=== PATIENT | male | born 1955 | race Caucasian/White ===

== ENCOUNTER 2017-09-28 08:26 | Inpatient (IN) | payer OTHER ==
[~2017-09-28] VITALS: Ht 162.6 cm; Wt 72.0 kg
[2017-09-28] VITALS (10 sets, daily range): BP systolic 102–133; BP diastolic 62–80; PULSE 78–96; RESP 14–20; TEMP 98.6; O2SAT 90–98
[~2017-09-28 08:26] MED LIST: ALBU8I INH; CARV3.125 PO; DUONI NEB; FURO1TAB93 PO; LISI5 PO; MOBI15TA PO; NEBUMIS6 INH; PRED10 PO; SYMB160A INH; TIOT18I INH
[2017-09-28] MEDS ORDERED: DILT120C50 PO (08:52)
[2017-09-28] MEDS ORDERED: ALBUAER3 INH (08:52)
--- NOTE | 2017-09-28 08:54 | PD ---
HPI Chief Complaint: Respiratory Symptoms Time Seen by Provider: 08:44 Travel History International Travel<30 days: No Contact w/Intl Traveler<30days: No Traveled to known affect area: No History of Present Illness HPI 61yo M with PMH of COPD on 3L NC presents to the ED with c/o sob and cough for 1 week. Said he used his nebulizer and oxygen but still sob. Pt was saturating in the 80s on 3L NC so increased to 5L and saturating in the low 90s while we wait for BIPAP. Pt is wheezing bilaterally and felt warm last night. He went to his PMD at the [facility] 4 weeks ago for COPD exacerbation and felt good after a few days of steroids but now feels worst. Denies any chest pain, n/v, abdominal pain, focal weakness or numbness. PFSH Past Medical History Hx Anticoagulant Therapy: Yes (asa 81) Arthritis: Yes Asthma: No Autoimmune Disease: No Heart Rhythm Problems: No Cancer: No Cardiovascular Problems: Yes High Cholesterol: No Chest Pain: No Congestive Heart Failure: Yes (diagnosed in 2014) COPD: Yes Coronary Artery Disease: No Diabetes: No Diminished Hearing: No Deep Vein Thrombosis: Yes (PE JUL 2012) Endocrine: No Gastrointestinal Disorders: Yes GERD: No Genitourinary: No Hepatitis: Yes (HEP C) Hiatal Hernia: No Immune Disorder: No Inguinal Hernia: Yes Implanted Vascular Access Dvce: No Musculoskeletal: Yes Neurologic: No Psychiatric: No Reproductive: No Respiratory: Yes Pneumonia: Yes Sleep Apnea: No Thyroid Disease: No Ulcer: No Past Surgical History Abdominal Surgery: Yes (inguinal hernia 5 years ago ) AICD: No Arteriovenous Shunt: No Cardiac Surgery: No Ear Surgery: No Endocrine Surgery: No Eye Surgery: No Genitourinary Surgery: No Gynecologic Surgery: No Insulin Pump: No Joint Replacement: No Oral Surgery: No Pacemaker: No Thoracic Surgery: No Tonsillectomy: Yes Other Surgery: Yes (HERNIA REPAIR 2010.A.) Social History Alcohol Use: No Tobacco Use: Yes Substance Use: No Allergies-Medications (Allergen,Severity, Reaction): Coded Allergies: No Known Allergies (Unverified Adverse Reaction, Unknown, 09/28/17) Reported Meds & Prescriptions Reported Meds & Active Scripts Active Reported Proair Hfa 8.5 GM Inh (Albuterol Sulfate) 90 Mcg/Act Aer 2 Puff INH Q4-6H PRN 108 mcg/actuation Diltiazem CD 24 HR 120 Mg Caper 180 Mg PO DAILY Review of Systems Except as stated in HPI: all other systems reviewed are Neg Physical Exam Narrative GENERAL: 61yo M in moderate distress. SKIN: Focused skin assessment warm/dry. HEAD: Atraumatic. Normocephalic. EYES: Pupils equal and round. No scleral icterus. No injection or drainage. ENT: No nasal bleeding or discharge. Mucous membranes pink and moist. NECK: Trachea midline. No JVD. CARDIOVASCULAR: Regular rate and rhythm. No murmur appreciated. RESPIRATORY: +accessory muscle use. Expiratory wheezing bilaterally. Poor air entry. GASTROINTESTINAL: Abdomen soft, non-tender, nondistended. MUSCULOSKELETAL: No obvious deformities. No clubbing. No cyanosis. No lower extremity edema. NEUROLOGICAL: Awake and alert. No obvious cranial nerve deficits. Motor grossly within normal limits. Normal speech. PSYCHIATRIC: Appropriate mood and affect; insight and judgment normal. Data Data Last Documented VS Vital Signs Date Time Temp Pulse Resp B/P (MAP) Pulse Ox O2 Delivery O2 Flow Rate FiO2 09/28/17 08:57 94 40 09/28/17 08:50 96 20 133/63 (86) Nasal Cannula 4.00 09/28/17 08:31 98.6 Orders Orders Complete Blood Count With Diff (09/28/17 08:50) Basic Metabolic Panel (Bmp) (09/28/17 08:50) B-Type Natriuretic Peptide (09/28/17 08:50) Act Partial Throm Time (Ptt) (09/28/17 08:50) Prothrombin Time / Inr (Pt) (09/28/17 08:50) Magnesium (Mg) (09/28/17 08:50) Troponin I (09/28/17 08:50) Influenzae A/B Antigen (09/28/17 08:50) Blood Culture (09/28/17 08:50) Electrocardiogram (09/28/17 08:50) Chest, Single Ap (09/28/17 08:50) Methylprednisolone So Succ Inj (Solumedr (09/28/17 09:00) Albuterol-Ipratropium Neb (Duoneb Neb) (09/28/17 09:00) Resp Bipap / Cpap Non Invas Vt (09/28/17 08:50) Lactic Acid Sepsis Protocol (09/28/17 08:54) Ceftriaxone Inj (Rocephin Inj) (09/28/17 10:00) Azithromycin Inj (Zithromax Inj) (09/28/17 10:00) Arterial Blood Gas (Abg) (09/28/17 ) Admit To Inpatient (09/28/17 ) Vital Signs (Adult) Q4H (09/28/17 10:16) Activity Oob With Assistance (09/28/17 10:16) Intake + Output JANI.QSHIFT (09/28/17 10:16) Diet Heart Healthy (09/28/17 Lunch) Sodium Chloride 0.9% Flush (Ns Flush) (09/28/17 10:30) Sodium Chloride 0.9% Flush (Ns Flush) (09/28/17 21:00) Acetaminophen (Tylenol) (09/28/17 10:30) Ondansetron Inj (Zofran Inj) (09/28/17 10:30) Temazepam (Restoril) (09/28/17 10:30) Basic Metabolic Panel (Bmp) (09/29/17 06:00) Complete Blood Count With Diff (09/29/17 06:00) Resp Oxygen Price C Titrat 1-4 L (09/28/17 ) Pt Request For Service (09/28/17 10:16) Case Management Consult (09/28/17 10:16) Enoxaparin Inj (Lovenox Inj) (09/28/17 10:30) Scd Bilateral/Knee High JANI.BID (09/28/17 10:16) Roby Bilateral/Knee High JANI.QSHIFT (09/28/17 10:16) Naloxone Inj (Narcan Inj) (09/28/17 10:30) Docusate Sodium-Senna (Constance-Colace) (09/28/17 21:00) Magnesium Hydroxide Liq (Milk Of Magnesi (09/28/17 10:30) Sennosides (Senokot) (09/28/17 10:30) Bisacodyl Supp (Dulcolax Supp) (09/28/17 10:30) Lactulose Liq (Lactulose Liq) (09/28/17 10:30) Inpatient Certification (09/28/17 ) Ceftriaxone Inj (Rocephin Inj) (09/28/17 10:30) Azithromycin Inj (Zithromax Inj) (09/28/17 10:30) Sputum Culture And Gram Stain (09/28/17 10:20) Guaifenesin Er (Mucinex Er) (09/28/17 21:00) Labs Laboratory Tests Test 09/28/17 08:44 09/28/17 09:00 White Blood Count 8.6 TH/MM3 Red Blood Count 4.69 MIL/MM3 Hemoglobin 14.9 GM/DL Hematocrit 44.1 % Mean Corpuscular Volume 93.9 FL Mean Corpuscular Hemoglobin 31.7 PG Mean Corpuscular Hemoglobin Concent 33.7 % Red Cell Distribution Width 13.2 % Platelet Count 249 TH/MM3 Mean Platelet Volume 8.8 FL Neutrophils (%) (Auto) 80.2 % Lymphocytes (%) (Auto) 9.1 % Monocytes (%) (Auto) 8.7 % Eosinophils (%) (Auto) 1.6 % Basophils (%) (Auto) 0.4 % Neutrophils # (Auto) 6.9 TH/MM3 Lymphocytes # (Auto) 0.8 TH/MM3 Monocytes # (Auto) 0.7 TH/MM3 Eosinophils # (Auto) 0.1 TH/MM3 Basophils # (Auto) 0.0 TH/MM3 CBC Comment DIFF FINAL Differential Comment Prothrombin Time 12.0 SEC Prothromb Time International Ratio 1.2 RATIO Activated Partial Thromboplast Time 26.2 SEC Blood Urea Nitrogen 10 MG/DL Creatinine 0.88 MG/DL Random Glucose 163 MG/DL Calcium Level 9.2 MG/DL Magnesium Level 1.8 MG/DL Sodium Level 135 MEQ/L Potassium Level 3.9 MEQ/L Chloride Level 91 MEQ/L Carbon Dioxide Level 37.6 MEQ/L Anion Gap 6 MEQ/L Estimat Glomerular Filtration Rate 87 ML/MIN Troponin I LESS THAN 0.02 NG/ML B-Type Natriuretic Peptide 35 PG/ML Lactic Acid Level 1.6 mmol/L [facility] Medical Decision Making Medical Screen Exam Complete: Yes Emergency Medical Condition: Yes Interpretation(s) EKG: NSR 63bpm. Normal axis. No ST segment elevation or depression. Q wave aVL. Differential Diagnosis COPD exacerbation vs. pneumonia Narrative Course 61yo M with COPD on 3L NC here with hypoxemia and worsening sob on 3L NC. Pt is wheezing bilaterally and given duonebs and methylprednisolone. Pt placed on BIPAP and is doing much better. Still wheezing but saturating at 94% on FiO2 60% and feeling better. Labs reviewed, no leukocytosis. H/H normal. Troponin negative. BNP normal. Lactic acid normal. Influenza negative. CXR showed right lower lobe infiltrate. Hyperinflation consistent with COPD. Pt has not been hospitalized in last 3 months so given ceftriaxone and azithromycin. Discussed with Dr. Cabrera and accepted to her service. Critical Care Narrative Aggregate critical care time was 45 minutes. Time to perform other separately billable procedures was not included in the critical care time. My time did not include minutes spent treating any other patients simultaneously or on activities that did not directly contribute to the patient's treatment. The services I provided to this patient were to treat and/or prevent clinically significant deterioration that could result in: Respiratory distress and . I provided critical care services requiring my management, as noted below: Chart data review, documentation time, medication orders and management, vital sign assessments/reviewing monitor data, ordering and reviewing lab tests, ordering and interpreting/reviewing x-rays and diagnostic studies, care of the patient and discussion of the patient with the admitting physicians. Diagnosis Primary Impression: Acute respiratory failure with hypoxia Additional Impression: COPD exacerbation Admitting Information Admitting Physician Requests: it Stephie Staton DO Sep 28, 2017 08:54
[2017-09-28] MEDS ORDERED: methylPREDNISolone SOD SUCC 125 MG/2 ML VIAL IV PUSH ONE (09:00)
[2017-09-28] MEDS: RESP: ALBUTEROL 2.5 MG/IPRATROPIUM 0.5 MG NEB (SCH) INH ×2 (09:14→09:16)
[2017-09-28 09:24] LABS: AUTOMATED NEUTROPHIL # 6.9 TH/MM3 (1.8-7.7); BASOPHIL % 0.4 % (0.0-2.0); EOSINOPHIL # 0.1 TH/MM3 (0-0.4); EOSINOPHIL % 1.6 % (0.0-4.0); HEMATOCRIT 44.1 % (39.0-51.0); HEMOGLOBIN 14.9 GM/DL (13.0-17.0); LYMPH % 9.1 % (9.0-44.0); LYMPHOCYTE # 0.8 TH/MM3 (1.0-4.8); MEAN CELL VOLUME 93.9 FL (80.0-100.0); MEAN CORPUSCULAR HEMOGLOBIN 31.7 PG (27.0-34.0); MEAN CORPUSCULAR HGB CONC 33.7 % (32.0-36.0); MEAN PLATELET VOLUME 8.8 FL (7.0-11.0); MONO % 8.7 % (0.0-8.0); MONOCYTE # 0.7 TH/MM3 (0-0.9); NEUT % 80.2 % (16.0-70.0); PLATELET COUNT 249 TH/MM3 (150-450); RED BLOOD COUNT 4.69 MIL/MM3 (4.50-5.90); RED CELL DISTRIBUTION WIDTH 13.2 % (11.6-17.2); WHITE BLOOD COUNT 8.6 TH/MM3 (4.0-11.0)
--- NOTE | 2017-09-28 09:24 | RADRPT ---
EXAM DATE/TIME: 09/28/2017 09:10 [place] COMPARISON: CHEST SINGLE AP, August 11, 2015, 13:51. INDICATIONS : Patient presents with extreme shortness of breath, and history of COPD. MEDICAL HISTORY : Emphysema. Congestive heart failure. Chronic obstructive pulmonary SURGICAL HISTORY : heart transplant as infant ENCOUNTER: Initial ACUITY: 1 day PAIN SCORE: 3/10 LOCATION: Bilateral upper chest FINDINGS: 2 portable frontal views of the chest show a mixed interstitial and intra-alveolar opacity within the medial right lung base. A similar but more pronounced infiltrate seen involving this area on the abbey or study. Left lung is clear. No effusions. Heart is normal in size and shape. Bony structures are un remarkable. CONCLUSION: Right lower lobe infiltrate. Hyperinflation consistent with COPD. Amos Acosta Jr., MD on September 28, 2017 at 9:20 Board Certified Radiologist. This report was verified electronically.
[2017-09-28 09:39] LABS: INTERNATIONAL NORMALIZED RATIO 1.2 RATIO
[2017-09-28 09:44] LABS: BICARBONATE 37.6 MEQ/L (21.0-32.0); BLOOD UREA NITROGEN 10 MG/DL (7-18); CALCIUM 9.2 MG/DL (8.5-10.1); CHLORIDE 91 MEQ/L (98-107); CREATININE 0.88 MG/DL (0.60-1.30); GLOMERULAR FILTRATION RATE 87 ML/MIN (>89); GLUCOSE,RANDOM 163 MG/DL (74-106); MAGNESIUM 1.8 MG/DL (1.5-2.5); SODIUM (NA) 135 MEQ/L (136-145)
[2017-09-28 09:48] LABS: TROPONIN I LESS THAN 0.02 NG/ML (0.02-0.05)
[2017-09-28] MEDS ORDERED: AZITHROMYCIN INJ 500 MG in SODIUM CHLOR 0.9% 250 ML INJ 250 ML IV ONE (10:00)
[2017-09-28] MEDS ORDERED: cefTRIAXone INJ 1,000 MG in SODIUM CHLORIDE 0.9% INJ 100 ML IV ONE (10:00)
[2017-09-28] MEDS ORDERED: MAGNESIUM HYDROXIDE SUSP 30 ML CUP PO PRN (10:30)
[2017-09-28] MEDS ORDERED: SENNOSIDES 8.6 MG TAB PO PRN (10:30)
[2017-09-28] MEDS ORDERED: SODIUM CHLORIDE 0.9% FLUSH 10 ML FLUSH IV FLUSH PRN (10:30)
[2017-09-28] MEDS ORDERED: BISACODYL 10 MG SUPP RECTAL PRN (10:30)
[2017-09-28] MEDS ORDERED: LACTULOSE SYRUP 20 GM/30 ML CUP PO PRN (10:30)
[2017-09-28] MEDS ORDERED: ONDANSETRON HCL 4 MG/2 ML VIAL IVP PRN (10:30)
[2017-09-28] MEDS ORDERED: RESP: ALBUTEROL 2.5 MG/IPRATROPIUM 0.5 MG NEB (PRN) NEB (10:30)
[2017-09-28] MEDS ORDERED: NALOXONE HCL 0.4 MG/ML AMP IV PUSH PRN (10:30)
[2017-09-28] MEDS ORDERED: ACETAMINOPHEN 325 MG TAB PO PRN (10:30)
[2017-09-28] MEDS ORDERED: TEMAZEPAM 15 MG CAP PO PRN (10:30)
[2017-09-28] MEDS: RESP: ALBUTEROL 2.5 MG/IPRATROPIUM 0.5 MG NEB (SCH) NEB ×3 (12:00→19:24)
[2017-09-28] MEDS: ENOXAPARIN SODIUM 40 MG/0.4 ML SYRINGE SQ SCH (13:05)
--- NOTE | 2017-09-28 14:31 | HHI.HP ---
[facility] Admission Diagnosis Acute hypoxic respiratory failure, COPD exacerbation, pneumonia Diagnoses: Chief Complaint: sob Travel History International Travel<30 Days: No Contact w/Intl Traveler <30 Da: No Traveled to Known Affected Are: No History of Present Illness 61yo M with PMH of chromic respiratory failure , COPD on 2L NC, congestive heart failure, hep C, arthritis, presents to the ED with c/o sob and cough for 1 week. Said he used his nebulizer and oxygen but still sob. Pt was saturating in the 80s on 3L NC so increased to 5L and saturating in the low 90s while we wait for BIPAP. Pt is wheezing bilaterally and felt warm last night. He went to his PMD at the [facility] 4 weeks ago for COPD exacerbation and felt good after a few days of steroids but now feels worst. Denies any chest pain, n/v, abdominal pain, focal weakness or numbness. Patient was placed on BiPAP in the emergency room as he was desaturating 80s on admission. ABG reviewed. Patient is sleepy. However he says he feels better than when he came. Says he is getting hungry and he did not eat today. Does not have much appetite. He is not coughing at this time. No fever or chills. No nausea or vomiting no diarrhea or constipation. Denies any chest pain. There is no lower extremity edema. Review of Systems ROS Limitations: Clinical Condition Except as stated in HPI: all other systems reviewed are Neg Past Family Social History Past Medical History COPD - on 2 L oxygen during night-time CHF with mod reduced EF Hepatitis C History of PE - in 2011 PUD - seen on EGD in 2013 Diverticulosis - seen on colonoscopy in 2013 Past Surgical History Tonsillectomy and adenoidectomy Right elbow surgery Left knee surgery Hernia repair Right facial/druze surgery Reported Medications Last Impressions Chest X-Ray 09/28/17 0850 Signed Impressions: Service Date/Time: Thursday, September 28, 2017 09:10 - CONCLUSION: Right lower lobe infiltrate. Hyperinflation consistent with COPD. Amos Acosta Jr., MD Allergies: Coded Allergies: No Known Allergies (Unverified Allergy, Unknown, 09/28/17) Family History Father: COPD Mother: CVD Social History Tobacco: 1/2 PPD x 30 years EtOH: 1 6-pack of beer monthly Recreational drugs: denies Physical Exam Vital Signs Vital Signs Date Time Temp Pulse Resp B/P (MAP) Pulse Ox O2 Delivery O2 Flow Rate FiO2 09/28/17 12:46 97 45 09/28/17 10:43 82 18 112/75 (87) 95 BiPAP 50 09/28/17 08:57 94 40 09/28/17 08:50 96 20 133/63 (86) 91 Nasal Cannula 4.00 09/28/17 08:43 107 28 87 Nasal Cannula 7.00 09/28/17 08:31 98.6 83 14 110/62 (78) 90 Physical Exam GENERAL: This is a pleasant 61-year-old male appearing older than the stated age , well-nourished, well-developed patient, in some distress due to shortness of breath now on BiPAP SKIN: No rashes, ecchymoses or lesions. Cool and dry. HEAD: Atraumatic. Normocephalic. No temporal or scalp tenderness. EYES: Pupils equal round and reactive. Extraocular motions intact. No scleral icterus. No injection or drainage. ENT: Nose without bleeding, purulent drainage or septal hematoma. Throat without erythema, tonsillar hypertrophy or exudate. Uvula midline. Airway patent. NECK: Trachea midline. No JVD or lymphadenopathy. Supple, nontender, no meningeal signs. CARDIOVASCULAR: Regular rate and rhythm without murmurs, gallops, or rubs. RESPIRATORY: Decreased breath sounds, scattered wheezing, shortness of breath, on BiPAP currently GASTROINTESTINAL: Abdomen soft, non-tender, nondistended. No hepato-splenomegaly , or palpable masses. No guarding. MUSCULOSKELETAL: Extremities without clubbing, cyanosis, or edema. No joint tenderness, effusion, or edema noted. No calf tenderness. Negative Homans sign bilaterally. NEUROLOGICAL: Awake and alert. Cranial nerves II through XII intact. Motor and sensory grossly within normal limits. Five out of 5 muscle strength in all muscle groups. Normal speech. Laboratory Laboratory Tests Test 09/28/17 08:44 09/28/17 09:00 09/28/17 10:59 White Blood Count 8.6 Red Blood Count 4.69 Hemoglobin 14.9 Hematocrit 44.1 Mean Corpuscular Volume 93.9 Mean Corpuscular Hemoglobin 31.7 Mean Corpuscular Hemoglobin Concent 33.7 Red Cell Distribution Width 13.2 Platelet Count 249 Mean Platelet Volume 8.8 Neutrophils (%) (Auto) 80.2 Lymphocytes (%) (Auto) 9.1 Monocytes (%) (Auto) 8.7 Eosinophils (%) (Auto) 1.6 Basophils (%) (Auto) 0.4 Neutrophils # (Auto) 6.9 Lymphocytes # (Auto) 0.8 Monocytes # (Auto) 0.7 Eosinophils # (Auto) 0.1 Basophils # (Auto) 0.0 CBC Comment DIFF FINAL Differential Comment Prothrombin Time 12.0 Prothromb Time International Ratio 1.2 Activated Partial Thromboplast Time 26.2 Blood Urea Nitrogen 10 Creatinine 0.88 Random Glucose 163 Calcium Level 9.2 Magnesium Level 1.8 Sodium Level 135 Potassium Level 3.9 Chloride Level 91 Carbon Dioxide Level 37.6 Anion Gap 6 Estimat Glomerular Filtration Rate 87 Troponin I LESS THAN 0.02 B-Type Natriuretic Peptide 35 Lactic Acid Level 1.6 Blood Gas Puncture Site LT RADIAL Blood Gas Patient Temperature 98.6 Blood Gas HCO3 35 Blood Gas Base Excess 9.8 Blood Gas Oxygen Saturation 93 Arterial Blood pH 7.41 Arterial Blood Partial Pressure CO2 56 Arterial Blood Partial Pressure O2 76 Arterial Blood Oxygen Content 18.0 Arterial Blood Carboxyhemoglobin 1.7 Arterial Blood Methemoglobin 0.6 Blood Gas Hemoglobin 13.7 Oxygen Delivery Device BIPAP Blood Gas Ventilator Setting 15 IPAP/6 EPAP Blood Gas Inspired Oxygen 50 Date/Time Source Procedure Growth Status 09/28/17 08:55 Blood Peripheral Aerobic Blood Culture Pending Received 09/28/17 08:55 Blood Peripheral Anaerobic Blood Culture Pending Received 09/28/17 09:00 Nasal Aspirate Influenza Types A,B Antigen (MAYA) - Final NEGATIVE FOR FLU A AND B ANTIGEN.... Complete Result Diagram: 09/28/17 0844 09/28/17 0844 Imaging Last Impressions Chest X-Ray 09/28/17 0850 Signed Impressions: Service Date/Time: Thursday, September 28, 2017 09:10 - CONCLUSION: Right lower lobe infiltrate. Hyperinflation consistent with COPD. MD Shelton Elias Jr. VTE Risk Assessment Caprini VTE Risk Assessment: Mod/High Risk (score >= 2) Caprini Risk Assessment Model Point Value = 1 Point Value = 2 Point Value = 3 Point Value = 5 Age 41-60 Minor surgery BMI > 25 kg/m2 Swollen legs Varicose veins or History of unexplained or recurrent spontaneous Oral contraceptives or hormone replacement Sepsis (< 1 month) Serious lung disease, including pneumonia (< 1 month) Abnormal pulmonary function Acute myocardial infarction Congestive heart failure (< 1 month) History of inflammatory bowel disease Medical patient at bed rest Age 61-74 Arthroscopic surgery Major open surgery (> 45 min) Laparoscopic surgery (> 45 min) Malignancy Confined to bed (> 72 hours) Immobilizing plaster cast Central venous access Age >= 75 History of VTE Family history of VTE Factor V Leiden Prothrombin [id number] Lupus anticoagulant Anticardiolipin antibodies Elevated serum homocysteine Heparin-induced thrombocytopenia Other congenital or acquired thrombophilia Stroke (< 1 month) Elective arthroplasty Hip, pelvis, or leg fracture Acute spinal cord injury (< 1 month) Prophylaxis Regimen Total Risk Factor Score Risk Level Prophylaxis Regimen 0-1 Low Early ambulation 2 Moderate Order ONE of the following: *Sequential Compression Device (SCD) *Heparin 5000 units SQ BID 3-4 Higher Order ONE of the following medications: *Heparin 5000 units SQ TID *Enoxaparin/Lovenox 40 mg SQ daily (WT < 150 kg, CrCl > 30 mL/min) *Enoxaparin/Lovenox 30 mg SQ daily (WT < 150 kg, CrCl > 10-29 mL/min) *Enoxaparin/Lovenox 30 mg SQ BID (WT < 150 kg, CrCl > 30 mL/min) AND/OR *Sequential Compression Device (SCD) 5 or more Highest Order ONE of the following medications: *Heparin 5000 units SQ TID (Preferred with Epidurals) *Enoxaparin/Lovenox 40 mg SQ daily (WT < 150 kg, CrCl > 30 mL/min) *Enoxaparin/Lovenox 30 mg SQ daily (WT < 150 kg, CrCl > 10-29 mL/min) *Enoxaparin/Lovenox 30 mg SQ BID (WT < 150 kg, CrCl > 30 mL/min) AND *Sequential Compression Device (SCD) Assessment and Plan Assessment and Plan 61-year-old male with Acute on chronic respiratory failure now requiring BiPAP COPD with exacerbation Right lower lobe pneumonia ABG reviewed. Patient is placed on BiPAP, monitor oxygen saturation taper off oxygen as tolerated. Patient follows with pulmonology doctor at the [facility] Started on IV antibiotics of azithromycin and Rocephin Blood cultures were obtained in the emergency room follow up results Add Mucinex Started DuoNeb scheduled and as needed, taper as tolerated Received 125 mg IV Solu-Medrol in the emergency room. Start Solu-Medrol 40 mg every 6 hours, taper steroids as tolerated Add incentive spirometry Consult PT Chronic medical problems appears at baseline restart home medications as appropriate Discussed Condition With Patient, nurse, ED physician Dr. Staton Physician Certification 2 Midnight Certification Type: Admission for Inpatient Services Order for Inpatient Services The services are ordered in accordance with Medicare regulations or non- Medicare payer requirements, as applicable. In the case of services not specified as inpatient-only, they are appropriately provided as inpatient services in accordance with the 2-midnight benchmark. Estimated LOS (days): 3 days is the estimated time the patient will need to remain in the hospital, assuming treatment plan goals are met and no additional complications. Post-Hospital Plan: Not yet determined Halima Cabrera MD Sep 28, 2017 14:31
[2017-09-28] MEDS: methylPREDNISolone SOD SUCC 40 MG/1 ML VIAL IV PUSH SCH ×2 (15:53→21:20)
[2017-09-28] MEDS: SODIUM CHLORIDE 0.9% FLUSH 10 ML FLUSH IV FLUSH SCH (21:19)
[2017-09-28] MEDS: DOCUSATE SODIUM 50 MG/SENNA 8.6 MG TAB PO SCH (21:20)
[2017-09-28] MEDS: guaiFENesin E.R. 600 MG TAB PO SCH (21:20)
[2017-09-29] VITALS (31 sets, daily range): BP systolic 96–123; BP diastolic 53–77; PULSE 61–137; RESP 16–20; TEMP 97.4–98.6; O2SAT 92–96
[2017-09-29] MEDS ORDERED: DILTIAZEM HCL 30 MG TAB PO ONE (00:45)
[2017-09-29] MEDS: DILTIAZEM-CD 180 MG CAP ER PO SCH ×2 (03:12→09:04)
[2017-09-29] MEDS: methylPREDNISolone SOD SUCC 40 MG/1 ML VIAL IV PUSH SCH ×3 (03:13→19:03)
[2017-09-29 05:08] LABS: AUTOMATED NEUTROPHIL # 9.1 TH/MM3 (1.8-7.7); BASOPHIL % 0.1 % (0.0-2.0); HEMATOCRIT 38.6 % (39.0-51.0); HEMOGLOBIN 13.3 GM/DL (13.0-17.0); LYMPH % 4.4 % (9.0-44.0); LYMPHOCYTE # 0.4 TH/MM3 (1.0-4.8); MEAN CELL VOLUME 93.3 FL (80.0-100.0); MEAN CORPUSCULAR HEMOGLOBIN 32.1 PG (27.0-34.0); MEAN CORPUSCULAR HGB CONC 34.4 % (32.0-36.0); MONO % 3.9 % (0.0-8.0); MONOCYTE # 0.4 TH/MM3 (0-0.9); NEUT % 91.6 % (16.0-70.0); PLATELET COUNT 240 TH/MM3 (150-450); RED BLOOD COUNT 4.14 MIL/MM3 (4.50-5.90); RED CELL DISTRIBUTION WIDTH 13.1 % (11.6-17.2)
[2017-09-29 05:24] LABS: BICARBONATE 36.2 MEQ/L (21.0-32.0); CALCIUM 9.5 MG/DL (8.5-10.1); CREATININE 0.81 MG/DL (0.60-1.30)
--- NOTE | 2017-09-29 07:27 | HHI.PR ---
Subjective Remarks Patient is in bed he appears to not acute distress at this time. He is off BiPAP. Says BiPAP did help a lot with breathing. Not coughing much. He is saturating well on 3 L by nasal cannula. No fever or chills. Objective Vitals Vital Signs Date Time Temp Pulse Resp B/P (MAP) Pulse Ox O2 Delivery O2 Flow Rate FiO2 09/29/17 06:00 61 09/29/17 05:00 63 09/29/17 04:00 74 09/29/17 03:20 97.4 80 18 103/70 (81) 95 09/29/17 03:20 95 Nasal Cannula 3.00 09/29/17 03:00 81 09/29/17 02:00 79 09/29/17 01:00 80 09/29/17 00:20 Nasal Cannula 3.00 09/29/17 00:15 96 Nasal Cannula 4.00 09/29/17 00:15 92 09/29/17 00:15 98.0 87 20 123/77 (92) 96 09/29/17 00:13 94 Nasal Cannula 3.00 09/29/17 00:02 09/28/17 23:00 78 16 121/71 (88) 98 Nasal Cannula 4.00 09/28/17 21:00 80 16 115/66 (82) 98 Nasal Cannula 4.00 09/28/17 19:28 96 4.00 09/28/17 19:06 82 15 102/71 (81) 97 Nasal Cannula 4.00 09/28/17 16:12 87 14 109/80 (90) 97 Nasal Cannula 4.00 09/28/17 12:46 97 45 09/28/17 10:43 82 18 112/75 (87) 95 BiPAP 50 09/28/17 08:57 94 40 09/28/17 08:50 96 20 133/63 (86) 91 Nasal Cannula 4.00 09/28/17 08:43 107 28 87 Nasal Cannula 7.00 09/28/17 08:31 98.6 83 14 110/62 (78) 90 I/O 09/28/17 09/28/17 09/28/17 09/29/17 09/29/17 09/29/17 07:00 15:00 23:00 07:00 15:00 23:00 Intake Total 350 ml 240 ml 480 ml Output Total 375 ml Balance 350 ml 240 ml 105 ml Intake Oral 240 ml 480 ml IV Total 350 ml Output Urine Total 375 ml # Bowel Movements 0 Result Diagram: 09/29/17 0400 09/29/17 0400 Imaging Last Impressions Chest X-Ray 09/28/17 0850 Signed Impressions: Service Date/Time: Thursday, September 28, 2017 09:10 - CONCLUSION: Right lower lobe infiltrate. Hyperinflation consistent with COPD. Amos Acosta Jr., MD Objective Remarks GENERAL: This is a pleasant 61-year-old male appearing older than the stated age , well-nourished, well-developed patient,appears in nad CARDIOVASCULAR: Regular rate and rhythm without murmurs, gallops, or rubs. RESPIRATORY: Decreased breath sounds, scattered wheezing, shortness of breath. GASTROINTESTINAL: Abdomen soft, non-tender, nondistended. No hepato-splenomegaly , or palpable masses. No guarding. MUSCULOSKELETAL: Extremities without clubbing, cyanosis, or edema. No joint tenderness, effusion, or edema noted. No calf tenderness. Negative Homans sign bilaterally. NEUROLOGICAL: Awake and alert. Cranial nerves II through XII intact. Motor and sensory grossly within normal limits. Five out of 5 muscle strength in all muscle groups. Normal speech. A/P Assessment and Plan 61-year-old male with Acute on chronic respiratory failure now requiring BiPAP COPD with exacerbation Right lower lobe pneumonia ABG reviewed. Patient is placed on BiPAP, monitor oxygen saturation taper off oxygen as tolerated. Patient follows with pulmonology doctor at the [place] Started on IV antibiotics of azithromycin and Rocephin Blood cultures were obtained in the emergency room follow up results Add Mucinex Started DuoNeb scheduled and as needed, taper as tolerated Received 125 mg IV Solu-Medrol in the emergency room. Start Solu-Medrol 40 mg every 6 hours, taper steroids as tolerated Add incentive spirometry, Acapella Consult PT Chronic medical problems appears at baseline restart home medications as appropriate Discussed Condition With Patient, nurse Halima Cabrera MD Sep 29, 2017 07:27
[2017-09-29] MEDS: RESP: ALBUTEROL 2.5 MG/IPRATROPIUM 0.5 MG NEB (SCH) NEB ×4 (08:35→19:29)
[2017-09-29] MEDS: DOCUSATE SODIUM 50 MG/SENNA 8.6 MG TAB PO SCH ×2 (08:57→21:53)
[2017-09-29] MEDS: guaiFENesin E.R. 600 MG TAB PO SCH ×2 (08:58→21:53)
[2017-09-29] MEDS ORDERED: DILTIAZEM-CD 180 MG CAP ER PO SCH (09:00)
[2017-09-29] MEDS: cefTRIAXone INJ 1,000 MG in SODIUM CHLORIDE 0.9% INJ 100 ML IV SCH (09:01)
[2017-09-29] MEDS: SODIUM CHLORIDE 0.9% FLUSH 10 ML FLUSH IV FLUSH SCH ×2 (09:01→21:00)
[2017-09-29] MEDS: AZITHROMYCIN INJ 500 MG in SODIUM CHLOR 0.9% 250 ML INJ 250 ML IV SCH (10:44)
[2017-09-29] MEDS: ENOXAPARIN SODIUM 40 MG/0.4 ML SYRINGE SQ SCH (11:47)
[2017-09-30] VITALS (15 sets, daily range): BP systolic 94–108; BP diastolic 61–75; PULSE 77–127; RESP 16–18; TEMP 96–98.2; O2SAT 91–97
[2017-09-30] MEDS: methylPREDNISolone SOD SUCC 40 MG/1 ML VIAL IV PUSH SCH ×3 (03:15→18:41)
--- NOTE | 2017-09-30 07:26 | HHI.FF ---
Face to Face Verification Diagnosis: (1) COPD (chronic obstructive pulmonary disease) (2) Acute respiratory failure with hypoxia (3) Cor pulmonale (4) Pneumonia Physical Therapy Order: Evaluate and Treat Home Health Nursing Order: Medical education Signs/symptoms of disease process Medication education-adverse effect Nursing assessment with vital signs I have seen patient Alonso Recinos on 09/30/17. My clinical findings support the need for the requested home health care services because: Ltd mobility - disease progression Patient has SOB I certify that my clinical findings support that this patient is homebound because: Hx COPD- exertion dyspnea/weakness Halima Cabrera MD Sep 30, 2017 07:26
--- NOTE | 2017-09-30 07:44 | HHI.PR ---
Subjective Remarks Patient is in bed with some wheezing and coughing yellow sputum no blood in it. No n/v/d/c. Denies cp. With sob. No fever or chills overnight. Objective Vitals Vital Signs Date Time Temp Pulse Resp B/P (MAP) Pulse Ox O2 Delivery O2 Flow Rate FiO2 09/30/17 06:00 100 09/30/17 05:00 94 09/30/17 04:00 82 09/30/17 03:00 96 Nasal Cannula 3.00 09/30/17 03:00 97.8 77 16 106/70 (82) 96 09/30/17 03:00 77 09/30/17 02:00 86 09/30/17 01:00 96 09/30/17 00:00 102 09/29/17 23:00 98.2 93 16 105/68 (80) 94 09/29/17 23:00 93 09/29/17 23:00 94 Nasal Cannula 3.00 09/29/17 22:00 102 09/29/17 21:00 110 09/29/17 20:00 110 09/29/17 19:31 Nasal Cannula 3.00 09/29/17 19:00 98.2 137 16 105/63 (77) 95 09/29/17 19:00 95 Nasal Cannula 3.00 09/29/17 19:00 137 09/29/17 18:00 104 09/29/17 17:00 110 09/29/17 16:00 109 09/29/17 15:00 98.1 95 19 96/53 (67) 94 09/29/17 15:00 102 09/29/17 15:00 94 Nasal Cannula 3.00 09/29/17 14:00 117 09/29/17 13:00 119 09/29/17 12:02 93 09/29/17 12:00 97.8 89 17 99/55 (70) 93 09/29/17 12:00 94 09/29/17 11:00 79 09/29/17 11:00 84 09/29/17 11:00 95 Nasal Cannula 3.00 09/29/17 11:00 98.6 83 17 110/65 (80) 95 09/29/17 10:17 83 09/29/17 10:00 82 09/29/17 09:15 86 09/29/17 09:00 89 09/29/17 08:35 92 Nasal Cannula 3.00 09/29/17 08:04 86 09/29/17 08:00 82 09/29/17 08:00 98.3 76 16 106/68 (81) 94 I/O 09/29/17 09/29/17 09/29/17 09/30/17 09/30/17 09/30/17 07:00 15:00 23:00 07:00 15:00 23:00 Intake Total 480 ml 350 ml 600 ml 480 ml Output Total 375 ml 850 ml Balance 105 ml 350 ml -250 ml 480 ml Intake Oral 480 ml 600 ml 480 ml IV Total 350 ml Output Urine Total 375 ml 850 ml # Voids 3 # Bowel Movements 0 1 Result Diagram: 09/29/17 0400 09/29/17 0400 Imaging Last Impressions Chest X-Ray 09/28/17 0850 Signed Impressions: Service Date/Time: Thursday, September 28, 2017 09:10 - CONCLUSION: Right lower lobe infiltrate. Hyperinflation consistent with COPD. Amos Acosta Jr., MD Objective Remarks GENERAL: This is a pleasant 61-year-old male appearing older than the stated age , well-nourished, well-developed patient,appears in nad CARDIOVASCULAR: Regular rate and rhythm without murmurs, gallops, or rubs. RESPIRATORY: Decreased breath sounds, scattered wheezing, shortness of breath. GASTROINTESTINAL: Abdomen soft, non-tender, nondistended. No hepato-splenomegaly , or palpable masses. No guarding. MUSCULOSKELETAL: Extremities without clubbing, cyanosis, or edema. No joint tenderness, effusion, or edema noted. No calf tenderness. Negative Homans sign bilaterally. NEUROLOGICAL: Awake and alert. Cranial nerves II through XII intact. Motor and sensory grossly within normal limits. Five out of 5 muscle strength in all muscle groups. Normal speech. A/P Assessment and Plan 61-year-old male with Acute on chronic respiratory failure, requiring BiPAP. Patient is on 2-3 L O2 at home.Currently on 3L NC. Resolved COPD with exacerbation. Resolving Right lower lobe pneumonia. r]Resolving ABG reviewed. Patient is placed on BiPAP, monitor oxygen saturation taper off oxygen as tolerated. Patient follows with pulmonology doctor at the [facility] Started on IV antibiotics of azithromycin and Rocephin Blood cultures were obtained in the emergency room follow up results Sputum cultures pending Legionella and Pneumococcal ag pending Add Mucinex Started DuoNeb scheduled and as needed, taper as tolerated Received 125 mg IV Solu-Medrol in the emergency room. Start Solu-Medrol 40 mg every 6 hours, taper steroids as tolerated Add incentive spirometry, A[place] Consult PT Chronic medical problems appears at baseline restart home medications as appropriate Discussed Condition With Patient, nurse Halima Cabrera MD Sep 30, 2017 07:44
[2017-09-30] MEDS: RESP: ALBUTEROL 2.5 MG/IPRATROPIUM 0.5 MG NEB (SCH) NEB ×4 (07:47→19:33)
[2017-09-30] MEDS: DILTIAZEM-CD 180 MG CAP ER PO SCH (08:42)
[2017-09-30] MEDS: guaiFENesin E.R. 600 MG TAB PO SCH ×2 (08:42→20:23)
[2017-09-30] MEDS: DOCUSATE SODIUM 50 MG/SENNA 8.6 MG TAB PO SCH ×2 (08:42→20:23)
[2017-09-30] MEDS: cefTRIAXone INJ 1,000 MG in SODIUM CHLORIDE 0.9% INJ 100 ML IV SCH (08:43)
[2017-09-30] MEDS: SODIUM CHLORIDE 0.9% FLUSH 10 ML FLUSH IV FLUSH SCH ×2 (08:43→20:27)
[2017-09-30] MEDS: SODIUM CHLOR 0.9% 1000 ML INJ 1,000 ML IV SCH ×2 (08:44→19:40)
[2017-09-30] MEDS: AZITHROMYCIN INJ 500 MG in SODIUM CHLOR 0.9% 250 ML INJ 250 ML IV SCH (12:14)
[2017-09-30] MEDS: ENOXAPARIN SODIUM 40 MG/0.4 ML SYRINGE SQ SCH (12:15)
[2017-09-30] MEDS ORDERED: ACETAMINOPHEN 325 MG TAB PO PRN (16:45)
[2017-10-01] VITALS: BP 103/69; PULSE 104; RESP 20; TEMP 97.4; O2SAT 93
[2017-10-01] MEDS: methylPREDNISolone SOD SUCC 40 MG/1 ML VIAL IV PUSH SCH (02:31)
[2017-10-01] MEDS: SODIUM CHLOR 0.9% 1000 ML INJ 1,000 ML IV SCH (02:33)
[2017-10-01 04:00] VITALS: BP 108/77; PULSE 99; RESP 20; TEMP 96; O2SAT 96
[2017-10-01 04:38] LABS: AUTOMATED NEUTROPHIL # 17.8 TH/MM3 (1.8-7.7); BASOPHIL % 0.1 % (0.0-2.0); HEMATOCRIT 38.7 % (39.0-51.0); HEMOGLOBIN 12.8 GM/DL (13.0-17.0); LYMPH % 2.9 % (9.0-44.0); LYMPHOCYTE # 0.6 TH/MM3 (1.0-4.8); MEAN CELL VOLUME 93.9 FL (80.0-100.0); MEAN CORPUSCULAR HEMOGLOBIN 31.2 PG (27.0-34.0); MEAN CORPUSCULAR HGB CONC 33.2 % (32.0-36.0); MEAN PLATELET VOLUME 8.6 FL (7.0-11.0); MONO % 3.7 % (0.0-8.0); MONOCYTE # 0.7 TH/MM3 (0-0.9); NEUT % 93.3 % (16.0-70.0); PLATELET COUNT 345 TH/MM3 (150-450); RED BLOOD COUNT 4.12 MIL/MM3 (4.50-5.90); RED CELL DISTRIBUTION WIDTH 13.4 % (11.6-17.2); WHITE BLOOD COUNT 19.1 TH/MM3 (4.0-11.0)
[2017-10-01 05:03] LABS: BICARBONATE 38.9 MEQ/L (21.0-32.0); CALCIUM 8.7 MG/DL (8.5-10.1); CREATININE 0.76 MG/DL (0.60-1.30)
[2017-10-01] MEDS: RESP: ALBUTEROL 2.5 MG/IPRATROPIUM 0.5 MG NEB (SCH) NEB ×2 (07:56→11:34)
[2017-10-01 07:58] VITALS: O2SAT 94
[2017-10-01 08:00] VITALS: BP 110/75; PULSE 86; RESP 17; TEMP 96; O2SAT 96
[2017-10-01 08:00] LABS: BANDS 4 % (0-6); LYMPHOCYTES 2 % (9-44); MONOCYTES 1 % (0-8); MYELOCYTES 4 % (0-0); NEUTROPHIL # MANUAL DIFF 18.5 TH/MM3 (1.8-7.7); POLYS (SEG NEUTROPHILS) 89 % (16-70)
[2017-10-01] MEDS: SODIUM CHLORIDE 0.9% FLUSH 10 ML FLUSH IV FLUSH SCH (09:00)
[2017-10-01] MEDS: DILTIAZEM-CD 180 MG CAP ER PO SCH (09:08)
[2017-10-01] MEDS: DOCUSATE SODIUM 50 MG/SENNA 8.6 MG TAB PO SCH (09:08)
[2017-10-01] MEDS: cefTRIAXone INJ 1,000 MG in SODIUM CHLORIDE 0.9% INJ 100 ML IV SCH (09:08)
[2017-10-01] MEDS: guaiFENesin E.R. 600 MG TAB PO SCH (09:08)
[2017-10-01] MEDS ORDERED: predniSONE 20 MG TAB PO ONE (10:30)
[2017-10-01] MEDS ORDERED: SYMB160A INH (10:33)
[2017-10-01] MEDS ORDERED: guaiFENesin ER PO (10:33)
[2017-10-01] MEDS ORDERED: IPRA17I INH (10:33)
[2017-10-01] MEDS ORDERED: PRED20 PO (10:33)
[2017-10-01] MEDS ORDERED: SPIRCAP INH (10:33)
[2017-10-01] MEDS ORDERED: VENTAER INH (10:33)
[2017-10-01] MEDS ORDERED: AZIT250T3 PO (10:37)
[2017-10-01] MEDS ORDERED: BUDESONIDE-FORMOTEROL 160/4.5 MCG INHALER INH SCH (10:45)
[2017-10-01] MEDS ORDERED: TIOTROPIUM BROMIDE 18 MCG INH INH SCH (10:45)
--- NOTE | 2017-10-01 10:50 | HHI.PR ---
Subjective Remarks Follow-up COPD exacerbation/respiratory failure/community acquired pneumonia 10/01/17-patient seen and examined, reports significant improvement or shortness of breath denies any chest pain. Currently on 3 L nasal cannula. Objective Vitals Vital Signs Date Time Temp Pulse Resp B/P (MAP) Pulse Ox O2 Delivery O2 Flow Rate FiO2 10/01/17 09:15 Nasal Cannula 3.00 10/01/17 08:00 96.0 86 17 110/75 (87) 96 10/01/17 07:58 94 Nasal Cannula 3.00 10/01/17 04:00 96.0 99 20 108/77 (87) 96 10/01/17 00:00 97.4 104 20 103/69 (80) 93 09/30/17 20:00 96.6 88 18 105/75 (85) 95 09/30/17 19:34 95 Nasal Cannula 3.00 09/30/17 16:00 96.9 86 17 98/65 (76) 96 09/30/17 14:16 Nasal Cannula 3.00 09/30/17 12:00 96.0 102 17 108/61 (77) 91 I/O 09/30/17 09/30/17 09/30/17 10/01/17 10/01/17 10/01/17 07:00 15:00 23:00 07:00 15:00 23:00 Intake Total 480 ml 250 ml 1746 ml 1360 ml Output Total 300 ml 300 ml Balance 480 ml 250 ml 1446 ml 1060 ml Intake Oral 480 ml 1746 ml 360 ml IV Total 250 ml 1000 ml Output Urine Total 300 ml 300 ml # Voids 3 3 2 # Bowel Movements 1 1 0 Result Diagram: 10/01/17 0407 10/01/17 0407 Imaging Last Impressions Chest X-Ray 09/28/17 0850 Signed Impressions: Service Date/Time: Thursday, September 28, 2017 09:10 - CONCLUSION: Right lower lobe infiltrate. Hyperinflation consistent with COPD. Amos Acosta Jr., MD Objective Remarks GENERAL: NAD SKIN: Warm and dry. HEAD: Normocephalic. EYES: No scleral icterus. No injection or drainage. NECK: Supple, trachea midline. No JVD or lymphadenopathy. CARDIOVASCULAR: Regular rate and rhythm without murmurs, gallops, or rubs. RESPIRATORY: Breath sounds equal bilaterally. No accessory muscle use. GASTROINTESTINAL: Abdomen soft, non-tender, nondistended. MUSCULOSKELETAL: No cyanosis, or edema. BACK: Nontender without obvious deformity. No CVA tenderness. Procedures none A/P Problem List: (1) Acute respiratory failure with hypoxia ICD Code: J96.01 - Acute respiratory failure with hypoxia Status: Acute (2) COPD exacerbation ICD Code: J44.1 - Chronic obstructive pulmonary disease with (acute) exacerbation Status: Acute (3) Pneumonia ICD Code: J18.9 - Pneumonia, unspecified organism Status: Acute Assessment and Plan 61-year-old man with COPD exacerbation Acute respiratory failure with hypoxia Community-acquired pneumonia Currently on Solu-Medrol, switch to by mouth prednisone Add Spiriva, Symbicort, continue with Duo Neb schedule and PRN Continue with Antibiotics Maintain oxygen saturation above 92% Paroxysmal atrial fibrillation On Cardizem Patient currently not on any oral anticoagulation DVT prophylaxis: Ciaran Car MD Oct 01, 2017 10:50
--- NOTE | 2017-10-01 10:59 | HHI.DS ---
Discharge Summary Admission Date Sep 28, 2017 at 10:23 Discharge Date: Oct 01, 2017 Admitting Diagnosis Acute hypoxic respiratory failure, COPD exacerbation, pneumonia (1) Acute respiratory failure with hypoxia ICD Code: J96.01 - Acute respiratory failure with hypoxia Status: Acute (2) COPD exacerbation ICD Code: J44.1 - Chronic obstructive pulmonary disease with (acute) exacerbation Status: Acute (3) Pneumonia ICD Code: J18.9 - Pneumonia, unspecified organism Status: Acute Procedures none Brief History - From Admission 61yo M with PMH of chromic respiratory failure , COPD on 2L NC, congestive heart failure, hep C, arthritis, presents to the ED with c/o sob and cough for 1 week. Said he used his nebulizer and oxygen but still sob. Pt was saturating in the 80s on 3L NC so increased to 5L and saturating in the low 90s while we wait for BIPAP. Pt is wheezing bilaterally and felt warm last night. He went to his PMD at the [facility] 4 weeks ago for COPD exacerbation and felt good after a few days of steroids but now feels worst. Denies any chest pain, n/v, abdominal pain, focal weakness or numbness. Patient was placed on BiPAP in the emergency room as he was desaturating 80s on admission. ABG reviewed. Patient is sleepy. However he says he feels better than when he came. Says he is getting hungry and he did not eat today. Does not have much appetite. He is not coughing at this time. No fever or chills. No nausea or vomiting no diarrhea or constipation. Denies any chest pain. There is no lower extremity edema. CBC/BMP: 10/01/17 0407 10/01/17 0407 Significant Findings Laboratory Tests Test 09/28/17 10:59 09/29/17 04:00 10/01/17 04:07 Blood Gas HCO3 35 mmol/L (22-26) Blood Gas Base Excess 9.8 mmol/L (-2-2) Arterial Blood Partial Pressure CO2 56 mmHg (38-42) Red Blood Count 4.14 MIL/MM3 (4.50-5.90) 4.12 MIL/MM3 (4.50-5.90) Hematocrit 38.6 % (39.0-51.0) 38.7 % (39.0-51.0) Neutrophils (%) (Auto) 91.6 % (16.0-70.0) 93.3 % (16.0-70.0) Lymphocytes (%) (Auto) 4.4 % (9.0-44.0) 2.9 % (9.0-44.0) Neutrophils # (Auto) 9.1 TH/MM3 (1.8-7.7) 17.8 TH/MM3 (1.8-7.7) Lymphocytes # (Auto) 0.4 TH/MM3 (1.0-4.8) 0.6 TH/MM3 (1.0-4.8) Random Glucose 146 MG/DL (74-106) 131 MG/DL (74-106) Sodium Level 135 MEQ/L (136-145) Chloride Level 93 MEQ/L (98-107) 96 MEQ/L (98-107) Carbon Dioxide Level 36.2 MEQ/L (21.0-32.0) 38.9 MEQ/L (21.0-32.0) White Blood Count 19.1 TH/MM3 (4.0-11.0) Hemoglobin 12.8 GM/DL (13.0-17.0) Neutrophils % (Manual) 89 % (16-70) Lymphocytes % 2 % (9-44) Neutrophils # (Manual) 18.5 TH/MM3 (1.8-7.7) Myelocytes 4 % (0-0) Anion Gap 3 MEQ/L (5-15) Imaging Last Impressions Chest X-Ray 09/28/17 0850 Signed Impressions: Service Date/Time: Thursday, September 28, 2017 09:10 - CONCLUSION: Right lower lobe infiltrate. Hyperinflation consistent with COPD. Amos Acosta Jr., MD PE at Discharge GENERAL: NAD SKIN: Warm and dry. HEAD: Normocephalic. EYES: No scleral icterus. No injection or drainage. NECK: Supple, trachea midline. No JVD or lymphadenopathy. CARDIOVASCULAR: irreg Regular rate and rhythm without murmurs, gallops, or rubs. RESPIRATORY: Breath sounds equal bilaterally. No accessory muscle use. GASTROINTESTINAL: Abdomen soft, non-tender, nondistended. MUSCULOSKELETAL: No cyanosis, or edema. BACK: Nontender without obvious deformity. No CVA tenderness. Hospital Course Patient was treated with initially IV Solu-Medrol,LABA as well as TROY along with IV antibiotics with improvement of his shortness of breath. His Respiratory failure resolved and returned to baseline on 3L NC. Prior to discharge, he was switched to PO steroid as well as antibiotic. His treatment for his other chronic medical conditions were resumed. DVT prophylaxis was provided Pt Condition on Discharge: Good Discharge Disposition: Discharge Home Discharge Time: <= 30 minutes Discharge Instructions DIET: Follow Instructions for: Heart Healthy Diet Activities you can perform: Regular-No Restrictions Follow up Referrals: PCP Follow-up - 1 Week New Medications: Albuterol 18 GM Inh (Ventolin Hfa 18 GM Inh) 90 Mcg/Act Aer 2 PUFF INH Q4-6H PRN for SHORTNESS OF BREATH, #1 INHALER 0 Refills Azithromycin (Azithromycin) 250 Mg Tab 250 MG PO DAILY for Infection, #5 TAB 0 Refills Budesonide-Formoterol Inh (Symbicort Inh) 160-4.5 Mcg/Act Aero 2 PUFF INH Q12HR, #1 INHALER 0 Refills Ipratropium HFA 12.9 GM Inh (Atrovent HFA 12.9 GM Inh) 17 Mcg/Actuation Aer 2 PUFF INH Q6HR PRN for SHORTNESS OF BREATH, #1 INHALER 0 Refills Tiotropium Inh (Spiriva Handihaler) 18 Mcg Cap 18 MCG INH DAILY for COPD, #30 CAP 0 Refills 1 capsule = 18 mcg Prednisone (Prednisone) 20 Mg Tab 20 MG PO DAILY for Breathing Treatment, #7 TAB [guaiFENesin ER] () 600 MG TABCR 600 MG PO BID, #20 Continued Medications: Albuterol 8.5 GM Inh (Proair Hfa 8.5 GM Inh) 90 Mcg/Act Aer 2 PUFF INH Q4-6H PRN for SHORTNESS OF BREATH, #1 INHALER 0 Refills 108 mcg/actuation Diltiazem CD 24 HR (Diltiazem CD 24 HR) 120 Mg Caper 180 MG PO DAILY, #30 CAP 0 Refills Ciaran Piedra MD Oct 01, 2017 10:59
[2017-10-01] MEDS: AZITHROMYCIN INJ 500 MG in SODIUM CHLOR 0.9% 250 ML INJ 250 ML IV SCH (11:47)
[2017-10-01] MEDS: ENOXAPARIN SODIUM 40 MG/0.4 ML SYRINGE SQ SCH (11:47)
[2017-10-01 12:00] VITALS: BP 106/70; PULSE 90; RESP 16; TEMP 96.1; O2SAT 95
--- NOTE | 2017-10-01 13:52 | EKG ---
Date Performed: 09/28/2017 Time Performed: 08:51:39 PTAGE: 61 years EKG: Sinus rhythm NORMAL ECG PREVIOUS TRACING : 08/06/2015 18.57 Compared to prior tracing, right and left atrial abnormali ties are no longer noted. DOCTOR: Paul Guadarrama Interpretating Date/Time 10/01/2017 13:51:25
[2017-10-02] MEDS ORDERED: predniSONE 20 MG TAB PO SCH (09:00)
== END 2017-10-01 15:09 | disposition home or self-care (01) | DRG 193 ==
LOC: NEPC 08:26 → NEDA 10:23 → HCPC 23:48 → N07A 09-30 10:55
PROVIDERS: ADMIT Hospitalist; ATTEND Hospitalist
PROC: 5A09357 Assistance with Respiratory Ventilation, Less than 24 Consecutive Hours, Continuous Positive Airway Pressure (ICD-10-PCS; principal; 2017-09-28)
DX: J18.9 Pneumonia, unspecified organism (principal); J96.21 Acute and chronic respiratory failure with hypoxia; J44.0 Chronic obstructive pulmonary disease with (acute) lower respiratory infection; I50.9 Heart failure, unspecified; J44.1 Chronic obstructive pulmonary disease with (acute) exacerbation; I48.0 Paroxysmal atrial fibrillation; F17.210 Nicotine dependence, cigarettes, uncomplicated; B19.20 Unspecified viral hepatitis C without hepatic coma; Z86.711 Personal history of pulmonary embolism; Z79.82 Long term (current) use of aspirin
CPT/HCPCS: 36600; 71045; 80048; 82805; 83605; 83735; 83880; 84484; 85007; 85025; 85027; 85610; 85730; 87040; 87070; 87205; 87804; 93005; 94002; 94150; 94640; 94664; 94667; 94668; 96374; J0456; J0696; J1650; J2920; J2930; J7030; J7050; J7512